=== PATIENT | male | born 1945 | race Caucasian/White ===

== ENCOUNTER 2019-05-27 05:05 | Emergency (ER) | payer MEDICARE, OTHER ==
[~2019-05-27] VITALS: Ht 185.4 cm; Wt 99.8 kg
[~2019-05-27 05:05] MED LIST: ALBU18 IN; ALPR0.25 PO; FURO40TA4 PO; GABA-339 PO; GLIP5TAB12 PO; HYDR-4833 PO; HYDR10TA26 PO; HYDR500T13 PO; LOSA-69 PO; PIO30T PO; POT10T PO; PROP80CA40 PO; SIMV-8 PO
[2019-05-27 06:49] LABS: Chloride 108 mmol/L (98-107); Potassium 4.6 mmol/L (3.5-5.1); Sodium 141 mmol/L (136-145)
[2019-05-27 06:51] LABS: Basophils # (auto) 0 uL; Basophils % (auto) 0.1 % (0.0-2.0); Eosinophils # (auto) 0.1 uL; Eosinophils % (auto) 1.2 % (0.0-7.0); Hematocrit 50.1 % (41.0-53.0); Hemoglobin 16.9 g/dL (13.5-17.5); Lymphocytes # (auto) 0.2 uL; Lymphocytes % (auto) 2.1 % (10.0-50.0); Mean Corpuscular Hemoglobin 33.3 pg (28.0-32.0); Mean Corpuscular Hgb Conc. 33.8 g/dL (32.0-36.0); Mean Corpuscular Volume 98.7 fL (80.0-100.0); Monocytes # (auto) 1.1 uL; Monocytes % (auto) 9.7 % (0.0-12.0); Neutrophils # (auto) 9.5 uL; Neutrophils % (auto) 86.9 % (37.0-80.0); Platelet Count (auto) 143 10^3/uL (140-450); Red Blood Cells 5.07 10^6/uL (4.5-5.90); Red Cell Distribution Width 16.1 % (11.8-14.3); White Blood Cell 10.9 10^3/uL (4.4-10.8)
[2019-05-27 07:03] LABS: Alanine Aminotransferase 17 U/L (16-61); Alkaline Phosphatase 121 U/L (45-117); Anion Gap 8 (5-15); Aspartate Aminotransferase 24 U/L (15-37); BUN/Creatinine Ratio 17.6; Bilirubin, Total 0.6 mg/dL (0.2-1.0); Blood Urea Nitrogen 33 mg/dL (7-18); Carbon Dioxide 25 mmol/L (21-32); GFR African American 46 mL/min; GFR Non-African American 38 mL/min; Glucose 178 mg/dL (74-106); Magnesium 1.6 mg/dL (1.6-2.6); Total Protein 7.1 g/dL (6.4-8.2)
[2019-05-27] MEDS ORDERED: LEVOFLOXACIN 250 MG TAB PO ONE (07:45)
[2019-05-27 09:01] VITALS: BP 102/50
== END 2019-05-27 09:22 | disposition home or self-care (01) ==
LOC: EDBD 05:05 → ER 05:07
DX: J18.9 Pneumonia, unspecified organism (principal); R00.0 Tachycardia, unspecified; E11.9 Type 2 diabetes mellitus without complications; I10 Essential (primary) hypertension; F17.210 Nicotine dependence, cigarettes, uncomplicated; Z88.8 Allergy status to other drugs, medicaments and biological substances; Z79.899 Other long term (current) drug therapy
CPT/HCPCS: 36415; 71045; 80053; 83735; 83880; 84484; 85025; 87040; 93005